=== PATIENT | male | born 1960 | race Caucasian/White ===

== ENCOUNTER 2024-01-07 08:05 | Outpatient (CLI) | payer MEDICARE | END 2024-01-07 08:06 | disposition home or self-care (01) | LOC: CSHRAD 08:05 | PROVIDERS: ATTEND Internal Medicine | DX: M54.50 Low back pain, unspecified (principal); M47.816 Spondylosis without myelopathy or radiculopathy, lumbar region | CPT/HCPCS: 72100 ==

== ENCOUNTER 2024-03-01 06:24 | Observation (INO) | payer MEDICARE ==
[2024-03-01 06:44] LABS: #Basophils 0.13 10x3/uL (0.0-0.2); #Eosinphils 0.21 10x3/uL (0.0-0.5); #Monocytes 1.32 10x3/uL (0.0-1.1); #Neutrophils 11.82 10x3/uL (1.5-8.4); %Basophils 0.7 % (0.0-2.0); %Eosinophils 1.1 % (0.0-6.0); %Lymphocytes 23.4 % (18.0-47.0); %Monocytes 7.1 % (0.0-10.0); %Neutrophils 63.8 % (40.0-75.0); Hematocrit 46.6 % (38.8-50.0); Hemoglobin 16.8 g/dL (13.5-17.5); Mean Corpuscular HGB CONC 36.1 g/dL (32.0-36.0); Mean Corpuscular Hemoglobin 30.1 pg (27.0-33.0); Mean Corpuscular Volume 83.4 fL (81.2-95.1); Mean Platelet Volume 9.4 fL (7.4-10.4); Platelet Count 231 10x3/uL (150-450); RBC Distribution Width 12.7 % (11.5-14.5); Red Blood Cell (RBC) Count 5.59 10x6/uL (4.32-5.72); White Blood Cell (WBC) Count 18.5 10x3/uL (3.5-10.5)
[2024-03-01] MEDS ORDERED: Aspirin Chewable 81 MG TAB ONE (06:55)
[2024-03-01 07:01] LABS: Troponin I Less than 0.010 ng/mL (< 0.028)
[2024-03-01 07:28] LABS: ALT (SGPT) 83 U/L (8-55); AST (SGOT) 25 U/L (5-34); Albumin 3.1 g/dL (3.4-4.8); Alkaline Phosphatase 50 U/L (40-110); BUN (Urea Nitrogen) 23 mg/dL (8.4-25.7); Bilirubin, Total 0.9 mg/dL (0.2-1.2); Calc. Creatinine Clearance 0 mL/min (70-130); Calcium 8.8 mg/dL (7.8-10.44); Carbon Dioxide 19 mmol/L (23-31); Estimated GFR 95; Globulin 3.3 g/dL (2.4-3.5); Glucose 89 mg/dL (80-115); Protein, Total 6.4 g/dL (5.8-8.1)
[2024-03-01 07:30] LABS: Chloride 110 mmol/L (98-107); Potassium 4.6 mmol/L (3.5-5.1); Sodium 138 mmol/L (136-145)
[2024-03-01 07:32] LABS: Anion Gap 14 mmol/L (10-20)
[2024-03-01 07:37] LABS: INR-International Normal Ratio 3.6; PTT 40.2 sec (22.0-33.0); Prothrombin Time 36.1 sec (9.5-12.1)
[2024-03-01 07:42] LABS: Lipase 102 U/L (8-78); Magnesium 2.3 mg/dL (1.6-2.6)
[2024-03-01] MEDS ORDERED: Guaifenesin DM 100-10/5 ML UDCUP PO PRN (09:51)
[2024-03-01] MEDS ORDERED: Azithromycin 500 MG VIAL ONE (10:01)
[2024-03-01 11:37] LABS: Troponin I Less than 0.010 ng/mL (< 0.028)
[2024-03-01] MEDS ORDERED: Iopamidol 370 76% 100 ML VIAL ONE (12:50)
[2024-03-01 13:07] VITALS: BMI 38.8
[2024-03-01] MEDS: Pantoprazole 40 MG VIAL IVP SCH (13:15)
[2024-03-01] MEDS: Amlodipine 5 MG TAB PO SCH (13:15)
[2024-03-01 13:50] LABS: Troponin I Less than 0.010 ng/mL (< 0.028)
[2024-03-01] MEDS ORDERED: Warfarin Sodium 7.5 MG TAB PO SCH ×2 (17:00)
[2024-03-01] MEDS: Acetaminophen 325 MG TAB PO PRN (20:47)
[2024-03-01] MEDS: Doxycycline 100 MG CAP PO SCH (20:47)
[2024-03-02 05:00] LABS: INR-International Normal Ratio 2.2
[2024-03-02 05:33] LABS: #Basophils 0.09 10x3/uL (0.0-0.2); #Eosinphils 0.24 10x3/uL (0.0-0.5); #Monocytes 1.13 10x3/uL (0.0-1.1); #Neutrophils 10.59 10x3/uL (1.5-8.4); %Basophils 0.6 % (0.0-2.0); %Eosinophils 1.6 % (0.0-6.0); %Lymphocytes 18.8 % (18.0-47.0); %Monocytes 7.4 % (0.0-10.0); Hematocrit 43.4 % (38.8-50.0); Hemoglobin 15.1 g/dL (13.5-17.5); Mean Corpuscular HGB CONC 34.8 g/dL (32.0-36.0); Mean Corpuscular Hemoglobin 29.6 pg (27.0-33.0); Mean Corpuscular Volume 85.1 fL (81.2-95.1); Mean Platelet Volume 9.5 fL (7.4-10.4); Platelet Count 207 10x3/uL (150-450); RBC Distribution Width 12.8 % (11.5-14.5); White Blood Cell (WBC) Count 15.3 10x3/uL (3.5-10.5)
[2024-03-02] MEDS: Pantoprazole DR 40 MG TAB PO SCH (08:40)
[2024-03-02] MEDS: Amlodipine 5 MG TAB PO SCH (08:40)
[2024-03-02 15:49] VITALS: BP 137/72; TEMP 98.2
[2024-03-02] MEDS ORDERED: Warfarin Sodium 5 MG TAB PO SCH (17:00)
== END 2024-03-02 15:21 | disposition home or self-care (01) ==
LOC: CSHERS 06:24 → CSHTELE 09:43
PROVIDERS: ADMIT Hospitalist; ATTEND Hospitalist
DX: I48.91 Unspecified atrial fibrillation (principal); R07.9 Chest pain, unspecified; I25.10 Atherosclerotic heart disease of native coronary artery without angina pectoris; I10 Essential (primary) hypertension; U07.1 COVID-19; Z79.01 Long term (current) use of anticoagulants; Z79.899 Other long term (current) drug therapy; Z98.890 Other specified postprocedural states
CPT/HCPCS: 71045; 71275; 83690; 83735; 83880; 84484 ×2; 85025; 85610 ×2; 85730; 93005; 96374 ×2; 99285; C9113; G0378 ×3; J0456; Q9967; 36415; 80053; 84443